=== PATIENT | male | born 1990 | race Caucasian/White ===

== ENCOUNTER 2025-03-06 09:42 | Emergency (ER) | payer BC, SELFPAY ==
--- NOTE | 2025-03-06 09:45 | RT.EKG_ITS ---
APPROVED REPORT Exam: Resting ECG Reason for Exam: chest pain Patient Location: E HR:72 bpm ECG Measurements Heart Rate 72 AXIS PA 141 P 27 QRSd 96 QRS 67 QT 389 T 47 QTc 426 Conclusion Sinus rhythm...normal P axis, V-rate 60- 99 ST elev, probable normal early repol pattern...ST elevation, age<55
[2025-03-06 09:48] VITALS: BP 116/73; PULSE 80; RESP 16; TEMP 36.7; O2SAT 97
--- NOTE | 2025-03-06 10:00 | DI.CT_ITS ---
Exam(s) CT CHEST PE ABD PELVIS W EXAM: CT CHEST PE ABD PELVIS W CLINICAL HISTORY: mesothelioma, right sided chest/abdomen pain. TECHNIQUE: Imaging Protocol: Axial CT angiography was performed with multi-slice acquisition and m ulti-planar and/or 3D reconstructions. CONTRAST MATERIAL: Intravenous: Omnipaque 350 Contrast volume:100 ml Oral: None COMPARISON: No exams were available for comparison FINDINGS: CHEST: PULMONARY ARTERIES: There are no intra-arterial filling defects to suggest the presence of acute pulm onary emboli. LUNGS: There is platelike atelectasis in the posterior left lung base but no confluent infiltrates no r pleural effusions. No ominous pulmonary masses. No pleural plaques evident..No significant findin gs in the trachea and mainstem bronchi. Distal tip of Port-A-Cath is in the lower SVC. There are no pleural effusions. MEDIASTINUM: There is no hilar nor mediastinal adenopathy. Visualized thyroid unremarkable. CARDIAC: Heart size is normal. There is no pericardial effusion. There is no significant shift of t he interventricular septum.Caliber of thoracic aorta is upper normal. There is no evidence of aortic dissection. OSSEOUS: No significant osseous lesions.No fractures.. ABDOMEN: There is mild ascites in the abdomen and pelvis.. Abnormal densities are seen within the mesenteric fat in the right paracolic gutter. LIVER: There are no focal hepatic lesions nor dilatation of intrahepatic ducts. GALLBLADDER/BILIARY: No obvious gallbladder pathology. CBD is not dilated. PANCREAS: No evidence of pancreatic mass nor dilatation of the pancreatic duct. SPLEEN: Spleen is not enlarged. There are no intrasplenic lesions. Splenic and portal veins are kapoor nt. ADRENALS: There are no significant adrenal masses. KIDNEYS:No cysts evident. No calculi nor hydronephrosis. No solid renal masses. ABDOMINAL AORTA: Abdominal aorta is not enlarged. LYMPH NODES: There are few enlarged para-aortic lymph nodes measuring up to 1.5 cm size ABDOMINAL WALL/GI: No evidence of significant anterior abdominal wall hernia. There is small area love bcutaneous streaking over the anterior left abdomen. This may be prior port site PELVIS: LYMPH NODES: There is no intrapelvic nor inguinal adenopathy. GI: No evidence of appendicitis.No evidence of sigmoid diverticulitis. URINARY BLADDER: Urinary bladder wall is uniformly thickened either related to cystitis were under di stension or a combination of both. REPRODUCTIVE: Prostate size upper normal. Seminal vesicles unremarkable. OSSEOUS: No significant osseous lesions. No fractures. IMPRESSION: 1. No evidence of acute pulmonary emboli nor pulmonary infarction. 2. No confluent infiltrates nor pleural effusions nor ominous pulmonary nodules.No intrathoracic mary opathy. 3. There is mild amount of ascites in the abdomen pelvis and there is also an abnormal mass in the fa t in the right paracolic gutter which measures approximately 3.4 by 2.3 by 3.2 cm, this subjacent to the inferior tip of the right hepatic lobe adjacent to the ascending colon-hepatic flexure junction n o other mesenteric masses noted although there are multiple small sub cm lymph nodes in the mesentery noted. 4. There is uniform thickening of the urinary bladder wall. Report discussed with ER physician 03/06/2025 at 12:35 p.m. RADIATION DOSE DELIVERED: 572.18mGy.cm Total DLP DATA REPOSITORY: All CT scans at this facility are submitted to the National Radiology Data Registry (NRDR) Dose Index Registry (DIR) with the [employer] ([employer]). RADIATION OPTIMIZATION: All CT scans at this facility use at least one of these dose optimization te chniques: automated exposure control; mA and/or kV adjustment per patient size (includes targeted exa ms where dose is matched to clinical indication); or iterative reconstruction.
--- NOTE | 2025-03-06 10:08 | ED.GENADUL_ITS ---
Discharge Plan Disposition Patient Disposition: Home Condition: Stable Discharge Details Chief Complaint: Chest Pain Clinical Impression: Chest pain, Abdominal pain Primary Care Provider: Paola Donald ED Provider: Wilmer Snow Discharge Instructions Additional Instructions: Your blood work and CAT scan did not show any emergent concerning findings. Follow-up with your primary care provider and oncologist. If you feel more ill or develop new symptoms such as persistent vomiting or high fevers return to the emergency department for reevaluation HPI General Mode of arrival: ambulatory . Date/Time Provider Initiated Documentation: 03/06/25 09:45 . Limitations to Documentation: no limitations . Information obtained by: patient . History of Present Illness 34 year old M presents to the emergency department with the chief complaint of chest and abdominal pain, described as moderate, Quality is described as aching, and is localized to the chest and abdomen. Patient reports no radiation. Patient started experiencing this week(s) (1) and it has been constant. No relieving factors improve symptom(s), No exacerbating factors reported . Patient notes denies fever/chills and shortness of breath. Patient did receive the following treatments prior to arrival, none Related Data Allergies Allergy/AdvReac Type Severity Reaction Status Date / Time No Known Allergies Allergy Unverified 03/06/25 09:50 General Stated Complaint: Chest Pain SYLVIA: 3 Review of Systems All systems reviewed & are unremarkable except as noted in HPI and below Constitutional Constitutional: Denies chills, Denies fever(s) and Denies weakness Cardiovascular Cardiovascular: Reports chest pain and Denies dyspnea Respiratory Respiratory: Denies cough and Denies dyspnea Gastrointestinal Gastrointestinal: Reports abdominal pain, Denies nausea and Denies vomiting Neurologic Neurologic: Denies weakness Course Vital Signs Vital signs: Vital Signs Temperature 36.7 C 03/06/25 09:48 Pulse 80 03/06/25 09:48 Respiratory Rate 16 03/06/25 09:48 Blood Pressure 116/73 03/06/25 09:48 Pulse Oximetry 97 03/06/25 09:48 Temperature 36.7 C 03/06/25 09:48 Temperature Source Oral 03/06/25 09:48 Pulse 80 03/06/25 09:48 Respiratory Rate 16 03/06/25 09:48 Blood Pressure 116/73 03/06/25 09:48 Pulse Oximetry 97 03/06/25 09:48 Medical Decision Making 34-year-old male who states he was diagnosed with mesothelioma was at the cancer center meeting with his oncologist and is planning to start chemotherapy next week comes in after he advised provider at the cancer center he said intermittent chest and abdominal pain for a week. He denies any dyspnea, vomiting, fevers. He is well-appearing in no distress and has a normal gait without any signs of respiratory distress. He has clear lung sounds, no JVD, no leg swelling or calf tenderness. He does have reproducible tenderness in the right upper and right lower quadrant of his abdomen, unclear etiology for symptoms but given his mesothelioma we will proceed with CBC, CMP, troponins and a CTA of the chest to evaluate for PE and also a CT abdomen pelvis to evaluate for etiology such as appendicitis versus cholecystitis. Labs unremarkable, CTA shows no PE or other concerning findings in the chest, does have some ascites and he states that he has known mesothelioma in his abdomen. He states he already knows that he has fluid in there. He has no fevers and he has no peritoneal abdominal pain so I doubt SBP. Given reassuring workup I feel he is stable for discharge to follow-up with his oncologist and PCP, return precautions given Differential Diagnosis Differential Diagnosis: PE, ACS, anxiety Lab Data Lab results reviewed: Yes I reviewed the patient's lab results. ECG Data Attestation: I personally reviewed and interpreted this ECG (s) as follows: Prior ECG tracings: not available for review Interpretation: sinus rate of 72 no stemi Quality:SDOH Health Related Social Needs: No Data to Display PFSH All Active Problems (Updated 03/06/25 @ 12:52 by Wilmer Snow MD) Abdominal pain (Acute) Chest pain (Acute) Social History Smoking risk assessment performed?: No
[2025-03-06 10:27] VITALS: BP 114/72; PULSE 67; PULSE 68; RESP 19; O2SAT 98
[2025-03-06 10:31] LABS: Abs Immature Grans 0.04 10^3/uL (0.0-0.06); Absolute Basophil Count 0.02 10^3/uL (0.0-0.2); Absolute Eosinophil Count 0.24 10^3/uL (0.0-0.7); Absolute Monocyte Count 0.92 10^3/uL (0.1-0.8); Absolute Neutrophil Count 9.59 10^3/uL (1.2-6.7); Basophils % 0.2 %; Eosinophils % 1.9 %; HGB 13.6 g/dL (13.5-17.5); Immature Grans % 0.3 %; Lymphocytes % 13.2 %; MCH 29.9 pg (27.0-33.0); MCHC 33.2 % (32.0-36.0); MCV 90 fL (80-95); MPV 9.1 fL (8.0-11.0); Monocytes % 7.4 %; Platelet Count 335 10^3/uL (130-400); RBC 4.55 10^6/uL (4.36-5.78); RDW 13.7 % (11.8-14.1); WBC 12.46 10^3/uL (4.4-10.8)
[2025-03-06 10:32] LABS: Absolute Lymphocyte Count 1.64 10^3/uL (1.2-3.4)
[2025-03-06 10:33] LABS: Bilirubin Small (Negative); Blood Negative (Negative); Clarity Clear (Clear); Glucose Negative (Negative); Ketones Negative (Negative); Leukocyte Esterase Negative (Negative); Nitrite Negative (Negative); pH 7.5 (5-8)
[2025-03-06 10:50] LABS: ALT 18 U/L (16-63); AST 11 U/L (15-37); Albumin 3.3 g/dL (3.4-5.0); Alkaline Phosphatase 112 U/L (46-116); BUN 7 mg/dL (7-18); Bilirubin, Total 0.6 mg/dL (0.2-1.0); CREATININE 0.8 mg/dL (0.70-1.30); Calcium 9.8 mg/dL (8.5-10.1); Chloride 100 mmol/L (98-107); Estimated GFR 117.63 (mL/min/1.73m2); Glucose 106 mg/dL (74-106); Lipase 19 U/L (<78); Magnesium 2.1 mg/dL (1.8-2.4); Sodium 138 mmol/L (136-145); Total Protein 8.4 g/dL (6.4-8.2)
[2025-03-06 10:53] LABS: Troponin I < 4 ng/L (<or=76)
[2025-03-06 11:01] VITALS: BP 118/78; PULSE 60; PULSE 62; RESP 15; O2SAT 97
[2025-03-06 11:31] VITALS: BP 119/84; PULSE 56; PULSE 59; RESP 16; O2SAT 96
[2025-03-06] MEDS: Omnipaque 350 MG/ML 100 ML BTL IJ (11:51)
[2025-03-06] MEDS: Normal Saline - Diluent 50 ML VIAL IJ (11:51)
[2025-03-06 11:53] LABS: Troponin I < 4 ng/L (<or=76)
[2025-03-06 12:50] VITALS: RESP 16
== END 2025-03-06 13:08 | disposition home or self-care (01) ==
PROVIDERS: Emergency Provider Emergency Medicine; PCP Physician Assistant
DX: R07.9 Chest pain, unspecified (principal); C45.9 Mesothelioma, unspecified
CPT/HCPCS: 36415; 71275; 74177; 80053; 83690; 93005; 99285; 81003; 83735; 84484; 85025; 93010; 99284; J3490

== ENCOUNTER 2025-03-13 02:00 | Outpatient (RCR) | payer BC, SELFPAY ==
[2025-03-13 09:48] LABS: Abs Immature Grans 0.04 10^3/uL (0.0-0.06); Absolute Basophil Count 0.05 10^3/uL (0.0-0.2); Absolute Eosinophil Count 0.44 10^3/uL (0.0-0.7); Absolute Lymphocyte Count 2.42 10^3/uL (1.2-3.4); Absolute Monocyte Count 0.74 10^3/uL (0.1-0.8); Absolute Neutrophil Count 6.62 10^3/uL (1.2-6.7); Basophils % 0.5 %; Eosinophils % 4.3 %; HCT 39.4 % (40.0-50.0); Immature Grans % 0.4 %; Lymphocytes % 23.5 %; MCH 29.9 pg (27.0-33.0); MCV 91 fL (80-95); MPV 8.4 fL (8.0-11.0); Monocytes % 7.2 %; Neutrophils % 64.1 %; Platelet Count 527 10^3/uL (130-400); RBC 4.35 10^6/uL (4.36-5.78); RDW 13.2 % (11.8-14.1); RDW-SD 44.2 fL; WBC 10.31 10^3/uL (4.4-10.8)
[2025-03-13] MEDS: Normal Saline Flush 10 ML SYR IVP (09:50)
[2025-03-13 10:07] LABS: ALT 20 U/L (16-63); AST 16 U/L (15-37); Albumin 3.1 g/dL (3.4-5.0); Alkaline Phosphatase 113 U/L (46-116); Anion Gap 9.9 mmol/L (3-11); BUN 7 mg/dL (7-18); Bilirubin, Total 0.2 mg/dL (0.2-1.0); CO2 27.1 mmol/L (21.0-32.0); CREATININE 0.7 mg/dL (0.70-1.30); Calcium 8.9 mg/dL (8.5-10.1); Chloride 103 mmol/L (98-107); Estimated GFR 122.47 (mL/min/1.73m2); Glucose 82 mg/dL (74-106); Magnesium 1.9 mg/dL (1.8-2.4); Potassium 3.8 mmol/L (3.5-5.1); Sodium 140 mmol/L (136-145); Total Protein 7.7 g/dL (6.4-8.2)
== END 2025-03-19 23:59 | disposition home or self-care (01) ==
LOC: INF 02:00
PROVIDERS: PCP Physician Assistant; Visit Provider Internal Medicine Hematology & Oncology
DX: C45.9 Mesothelioma, unspecified (principal); Z45.2 Encounter for adjustment and management of vascular access device
CPT/HCPCS: 36591; 80053; 83735; 85025

== ENCOUNTER 2025-04-03 01:33 | Outpatient (RCR) | payer BC, SELFPAY ==
[2025-04-03 08:39] LABS: Abs Immature Grans 0.02 10^3/uL (0.0-0.06); Absolute Basophil Count 0.05 10^3/uL (0.0-0.2); Absolute Eosinophil Count 0.23 10^3/uL (0.0-0.7); Absolute Lymphocyte Count 3.15 10^3/uL (1.2-3.4); Absolute Monocyte Count 1.02 10^3/uL (0.1-0.8); Absolute Neutrophil Count 3.28 10^3/uL (1.2-6.7); Basophils % 0.6 %; HCT 39.2 % (40.0-50.0); HGB 13.2 g/dL (13.5-17.5); Immature Grans % 0.3 %; Lymphocytes % 40.6 %; MCH 29.7 pg (27.0-33.0); MCHC 33.7 % (32.0-36.0); MCV 88 fL (80-95); MPV 8.7 fL (8.0-11.0); Monocytes % 13.2 %; Neutrophils % 42.3 %; Platelet Count 592 10^3/uL (130-400); RBC 4.45 10^6/uL (4.36-5.78); RDW 13.6 % (11.8-14.1); RDW-SD 43.6 fL; WBC 7.75 10^3/uL (4.4-10.8)
[2025-04-03] MEDS: Normal Saline Flush 10 ML SYR IVP (08:41)
[2025-04-03 08:54] LABS: ALT 37 U/L (16-63); AST 20 U/L (15-37); Albumin 3.4 g/dL (3.4-5.0); Alkaline Phosphatase 105 U/L (46-116); BUN 10 mg/dL (7-18); Bilirubin, Total 0.3 mg/dL (0.2-1.0); CREATININE 0.8 mg/dL (0.70-1.30); Chloride 103 mmol/L (98-107); Estimated GFR 117.63 (mL/min/1.73m2); Glucose 109 mg/dL (74-106); Magnesium 1.8 mg/dL (1.8-2.4); Potassium 3.7 mmol/L (3.5-5.1); Sodium 139 mmol/L (136-145); Total Protein 7.6 g/dL (6.4-8.2)
== END 2025-04-19 23:59 | disposition home or self-care (01) ==
LOC: INF 01:33
PROVIDERS: PCP Physician Assistant; Visit Provider Internal Medicine Hematology & Oncology
DX: C45.9 Mesothelioma, unspecified (principal); Z45.2 Encounter for adjustment and management of vascular access device
CPT/HCPCS: 36591; 80053; 83735; 85025

== ENCOUNTER 2025-05-01 01:38 | Outpatient (RCR) | payer BC, SELFPAY ==
[2025-05-01 07:59] LABS: Abs Immature Grans 0.04 10^3/uL (0.0-0.06); Absolute Basophil Count 0.03 10^3/uL (0.0-0.2); Absolute Eosinophil Count 0.29 10^3/uL (0.0-0.7); Absolute Monocyte Count 0.93 10^3/uL (0.1-0.8); Absolute Neutrophil Count 3.57 10^3/uL (1.2-6.7); Basophils % 0.4 %; Eosinophils % 3.6 %; HCT 36.9 % (40.0-50.0); HGB 12.5 g/dL (13.5-17.5); Immature Grans % 0.5 %; Lymphocytes % 40.4 %; MCH 29.6 pg (27.0-33.0); MCHC 33.9 % (32.0-36.0); MCV 87 fL (80-95); MPV 8.3 fL (8.0-11.0); Monocytes % 11.4 %; Neutrophils % 43.7 %; RBC 4.22 10^6/uL (4.36-5.78); RDW 13.2 % (11.8-14.1); RDW-SD 42.1 fL; WBC 8.16 10^3/uL (4.4-10.8)
[2025-05-01 08:25] LABS: ALT 38 U/L (16-63); AST 23 U/L (15-37); Albumin 3.1 g/dL (3.4-5.0); Alkaline Phosphatase 97 U/L (46-116); Anion Gap 8.8 mmol/L (3-11); BUN 5 mg/dL (7-18); Bilirubin, Total 0.2 mg/dL (0.2-1.0); CO2 27.2 mmol/L (21.0-32.0); CREATININE 0.8 mg/dL (0.70-1.30); Calcium 9.1 mg/dL (8.5-10.1); Chloride 103 mmol/L (98-107); Estimated GFR 117.63 (mL/min/1.73m2); Glucose 95 mg/dL (74-106); Magnesium 1.7 mg/dL (1.8-2.4); Potassium 3.8 mmol/L (3.5-5.1); Sodium 139 mmol/L (136-145); Total Protein 7.8 g/dL (6.4-8.2)
[2025-05-01 08:36] LABS: Platelet Count 679 10^3/uL (130-400)
[2025-05-01 08:37] LABS: Diff Comment PLT Morph Reviewed; RBC Morphology Normal
[2025-05-01] MEDS: Normal Saline Flush 10 ML SYR IVP (08:45)
== END 2025-05-19 23:59 | disposition home or self-care (01) ==
LOC: INF 01:38
PROVIDERS: PCP Physician Assistant; Visit Provider Internal Medicine Hematology & Oncology
DX: C45.9 Mesothelioma, unspecified (principal); Z45.2 Encounter for adjustment and management of vascular access device
CPT/HCPCS: 36591; 80053; 83735; 85025